=== PATIENT | female | born 1965 | race African-American/Black ===

== ENCOUNTER 2023-09-05 12:30 | Outpatient (RCR) | payer OTHER, SELFPAY ==
--- NOTE | 2023-08-22 09:25 | PTOPEVAL1 ---
Assessment and note entered by Marcos Lara Evaluation Information Assessment Status Evaluation Diagnosis BPPV Onset 06/22/23 Subjective Information Pt. reports that a couple months ago she began noticing a roaring sound in her ear. She reports that she began develop a dizziness, which she describes as a spinning. She reports that the dizziness is triggered with turning her head in any direction. She reports she initially went to the ER by ambulance. She reports that she underwent CT scan, which was negative. she reports that she will experience dizziness in any position. She reports that cleaning her house is difficulty due to triggered dizziness with activity. she recalls no falls due to her dizziness. She reports that she continues to drive despite the dizziness. She recalls no episodes of dizziness prior to the past couple months. She reports her dizziness/spinning will occur a few times everyday. She reports that her goal is to decrease her dizziness. Reported Pain Level Pain Score 0: Self Report Assessment PT Clinical Summary Pt. is 57 year old female who enters the clinic with a diagnosis of BPPV. Pt. does not present with nystagmus however note reported dizziness on to the right side on this date. Continued skilled PT is indicated in order to reduce dizziness to assist with improved effiicency with ADL performance. Plan of Care Interventions Neuro Re-education,Therapeutic Activities, Therapeutic Exercise PT Services Indicated Yes Treatment Frequency and 1x/week x 3 visits Duration These treatments will address the objective and functional deficits as defined above. The patient will be advanced safely and appropriately in order for the patient to progress towards his/her prior level of function. Additional exercises will be introduced and as well as a comprehensive home exercise program upon discharge, if needed, ?to ensure carryover of functional gains achieved in the clinic. This treatment plan has been reviewed and agreement upon by the patient.
--- NOTE | 2023-08-22 09:28 | OPREHPOC ---
Outpatient Therapy Plan of Care This is a Multidisciplinary Plan of Care that may contain components documented by all disciplines (PT, OT, and ST.) PT Problem 1 PT Problem #1 Knowledge Deficit PT Goal 1 Goal Independent with home performance of the [employer]. Target Visit 2 PT Problem 2 PT Problem #2 Impaired Functional Mobil PT Goal 1 Goal Pt. will score 15 or less on the DHI indicating improved function and decrease in dizziness Target Visit 3 PT Problem 3 PT Problem #3 Impaired Vestibular Syste PT Goal 1 Goal Pt. will report having no episode of dizziness in a 1 week period. Target Visit 3
--- NOTE | 2023-08-29 10:57 | PCPTNOTE ---
Pt cancelled today due to car trouble.
--- NOTE | 2023-09-12 10:28 | PCPTNOTE ---
Pt. did not show for her schedule appointment on 09/12/23. Marcos Lara, MPT
--- NOTE | 2023-10-10 12:57 | PTOPPROGNS ---
Assessment and note entered by Marcos Lara Evaluation Information Assessment Status Discharge - Pt Not Present Diagnosis BPPV Onset 06/22/23 Assessment PT Clinical Summary Mrs. Martinez has failed to return to the clinic since 09/05/23. She has failed to contact the clinic regarding her status. She will be discharged from our care at this time. Refer to last daily note for pt. discharge status. Plan of Care D/C from PT These treatments will address the objective and functional deficits as defined above. The patient will be advanced safely and appropriately in order for the patient to progress towards his/her prior level of function. Additional exercises will be introduced and as well as a comprehensive home exercise program upon discharge, if needed, ?to ensure carryover of functional gains achieved in the clinic. This treatment plan has been reviewed and agreement upon by the patient.
== END 2023-11-05 09:30 | disposition home or self-care (01) ==
LOC: ANHPT 12:30
PROVIDERS: PCP Family Medicine; Visit Provider Family Medicine
DX: H81.13 Benign paroxysmal vertigo, bilateral (principal)
CPT/HCPCS: 95992; 97161; 97530; 99199